=== PATIENT | male | born 1965 | race Caucasian/White ===

== ENCOUNTER 2020-03-15 12:32 | Outpatient (REF) | payer BC, SELFPAY ==
[2020-03-15 14:52] LABS: PSA,Total (Free>4and<10) 0.71 ng/mL (0.00-4.00)
== END 2020-03-15 12:33 | disposition home or self-care (01) ==
LOC: HO.10HDL 12:32
PROVIDERS: Visit Provider Urology
DX: R97.20 Elevated prostate specific antigen [PSA] (principal)
CPT/HCPCS: 84153

== ENCOUNTER → 2020-07-28 13:48 | Outpatient (BNVA) | payer BC, SELFPAY | PROVIDERS: PCP Internal Medicine; Visit Provider Urology | DX: N40.1 Benign prostatic hyperplasia with lower urinary tract symptoms (principal); R97.20 Elevated prostate specific antigen [PSA] | CPT/HCPCS: 51798; 81002 ==

== ENCOUNTER 2021-07-22 10:07 | Outpatient (REF) | payer BC, SELFPAY ==
[2021-07-22 12:24] LABS: Prostate Specific Antigen 0.81 ng/mL (<0.05-4.0)
== END 2021-07-22 10:08 | disposition home or self-care (01) ==
LOC: HO.LAB 10:07
PROVIDERS: PCP Nurse Practitioner Family; Visit Provider Urology
DX: Z12.5 Encounter for screening for malignant neoplasm of prostate (principal); N40.1 Benign prostatic hyperplasia with lower urinary tract symptoms; N13.8 Other obstructive and reflux uropathy
CPT/HCPCS: 36415; 84153

== ENCOUNTER → 2021-07-29 10:01 | Outpatient (BNVA) | payer BC, SELFPAY | PROVIDERS: PCP Nurse Practitioner Family; Visit Provider Urology | DX: Z13.89 Encounter for screening for other disorder (principal) ==

== ENCOUNTER → 2021-09-09 10:28 | Outpatient (BNVA) | payer BC, SELFPAY | PROVIDERS: PCP Nurse Practitioner Family; Visit Provider Urology | DX: N41.9 Inflammatory disease of prostate, unspecified (principal) ==

== ENCOUNTER → 2021-09-16 11:12 | Outpatient (BNVA) | payer BC, SELFPAY | PROVIDERS: PCP Nurse Practitioner Family; Visit Provider Urology | DX: Z13.89 Encounter for screening for other disorder (principal) ==

== ENCOUNTER → 2022-03-17 14:17 | Outpatient (BNVA) | payer BC, SELFPAY | PROVIDERS: PCP Nurse Practitioner Family; Visit Provider Urology | DX: N40.1 Benign prostatic hyperplasia with lower urinary tract symptoms (principal); N41.9 Inflammatory disease of prostate, unspecified; R97.20 Elevated prostate specific antigen [PSA] | CPT/HCPCS: 51798 ==

== ENCOUNTER 2023-03-12 09:35 | Outpatient (REF) | payer OTHER, SELFPAY ==
[2023-03-12 11:15] LABS: Prostate Specific Antigen 1.39 ng/mL (<0.05-4.0)
== END 2023-03-12 09:36 | disposition home or self-care (01) ==
LOC: HO.10HDL 09:35
PROVIDERS: Visit Provider Urology
DX: N40.1 Benign prostatic hyperplasia with lower urinary tract symptoms (principal); Z12.5 Encounter for screening for malignant neoplasm of prostate
CPT/HCPCS: 36415; 84153

== ENCOUNTER 2023-03-13 08:46 | Outpatient (AMB) | payer OTHER, SELFPAY ==
--- NOTE | 2023-03-13 09:28 | MHC.OFFVIS ---
Intake Intake Visit Reasons: 1Y PSA(set) Allergies No Known Allergies Allergy (Verified 03/13/23 08:44) HPI HPI Comments History of Present Illness Details Jack is a pleasant male. He is a patient of Dr. Cardoza. He is seen with following urologic conditions - lower urinary tract symptoms - prostatitis Telemedicine Evaluation 15 min Consultation [employer] Sonam Video Doing well Has feeling that restriction coming back Approximately 8 years since procedure Will plan for office cystoscopy Had uro cuff with friend that showed restricted flow and good pressure Lower urinary tract symptoms Prior therapy laser prostatectomy for BPH - 2014 PSA - 03/19 0.7, 07/19 0.8, 03/22 1.4 Prostatitis Responded to medication Microgen 09/18 negative [facility] Medical History BPH loc w urin obs/LUTS Elevated PSA Review of Systems Const All systems reviewed & are unremarkable except as noted in HPI and below Reports no additional complaints Resp Reports no additional complaints GI Reports no additional complaints Reports as per HPI Musc Reports no additional complaints Physical Exam Telemedicine evaluation Appropriate responses Regular breathing rate and rhythm HEENT Head: Yes normal to inspection Ears: hearing grossly normal bilaterally Eyes General: appearance normal, both eyes and all related structures Neck Neck: Yes normal visual inspection Chest Chest palpation & inspection: normal inspection of the chest Resp Effort & Inspection: normal respiratory effort and able to speak in complete sentences Telehealth Telehealth Location of provider rendering services: practice address Location of patient: address on file Patient Identification confirmed using: Name, : Yes Telehealth method: video Patient verbally consented to treatment: Yes Patient verbally consented to billing insurance company: Yes Patient informed of any privacy concerns related to visit: Yes Coding Level of Care Code Tele Est Pt Level 4 (43986)
== END 2023-03-13 13:10 | disposition home or self-care (01) ==
LOC: HO.HUSH 08:46
PROVIDERS: PCP Nurse Practitioner Family; Visit Provider Urology
DX: N40.1 Benign prostatic hyperplasia with lower urinary tract symptoms (principal); N13.8 Other obstructive and reflux uropathy
CPT/HCPCS: 99214

== ENCOUNTER → 2023-03-13 08:46 | Outpatient (BNVA) | payer OTHER, SELFPAY | PROVIDERS: PCP Nurse Practitioner Family; Visit Provider Urology ==

== ENCOUNTER 2023-07-17 10:48 | Outpatient (AMB) | payer OTHER, SELFPAY ==
--- NOTE | 2023-07-17 11:12 | A.OFFVIS_ITS ---
Intake Intake Visit Reasons: cysto Intake Note: Patient is Present for Cystoscopy Urology Med:Tamsulosin Antibiotic Allergy:None Blood Thinner:None URO- G HD Disposable Cystoscope lot: [id number] exp:02/22/26 Allergies No Known Allergies Allergy (Verified 07/17/23 11:15) HPI HPI Comments History of Present Illness Details Jack is a pleasant male. He is a patient of Dr. Cardoza. He is seen with following urologic conditions - lower urinary tract symptoms - prostatitis Here for cystoscopy Shows restriction at bladder neck Recommends repeat GreenLight laser AUA score 23 Had uro cuff with friend that showed restricted flow and good pressure Lower urinary tract symptoms Prior therapy laser prostatectomy for BPH - 2014 PSA - 03/19 0.7, 07/19 0.8, 03/22 1.4 Prostatitis Responded to medication Microgen 09/18 negative [facility] Medical History BPH loc w urin obs/LUTS Elevated PSA Review of Systems Const Denies chills and Denies fever(s) Card Reports no additional complaints and Denies syncope Resp Denies cough GI Denies abdominal pain and Denies heartburn Reports as per HPI and Denies change in libido Neuro Denies syncope Psych Denies change in libido Endo Denies change in libido Physical Exam Const General: cooperative, healthy appearing, comfortable and no acute distress Orientation/consciousness: patient oriented x3 HEENT Face and sinus: Yes normal facial exam Mouth: moist mucous membranes Neck Neck: Yes normal visual inspection, Yes full ROM and Yes trachea midline Chest Chest palpation & inspection: normal inspection of the chest Resp Effort & Inspection: normal respiratory effort, able to speak in complete sentences and no respiratory distress GI Inspection: Yes normal to inspection Back/Spine/Pelvis Cervical Spine: normal cervical lordosis Thoracic/Lumbar Spine: thoracic and lumbar spine normal to inspection Skin General skin exam: no rashes or lesions noted Neuro General: patient oriented x3, gait normal, tone normal and moves all extremities Extrem General: Yes normal to inspection and Yes capillary refill normal Office Procedures Cystoscopy Consent Discussed risk and benefit or proposed procedure with the patient. Information consent for procedure given to the patient. Discussed technical aspects, risks, benefits and alternatives in full. Addressed all of the patient's questions and concerns regarding the procedure. The patient demonstrated knowledge and understanding. They wish to proceed with this procedure. Preparation The patient was prepped in the usual manner. A head start director was present and in the room. Genitalia was prepped with betadine solution in a sterile manner. Lidocaine Jelly 2% was placed into the urethra and 16Fr flexible Olympus cystoscope was inserted into the meatus after adequate lubrication. Procedure Meatus circumcised Urethra anterior and posterior urethra normal Prostatic Urethra TURP defect with regrowth Bladder examination with retroflexion of cystoscope Bladder Orifices normal shape and position Bladder Capacity large Trabeculations grade 1 Cellule Formation -- Diverticulum Formation - Mucosal Erythema - Bladder Tumor - 90450-Ltecrumaoa DISPOSABLE SCOPE URO-G FLEXIBLE SCOPE Procedure code (CPT) selection complete Office Meds lidocaine HCl 2 % mucosal jelly in applicator Performing Provider: Michael Ball MD Performing Location: [facility] Administered by: Gabbi Ibarra RN on 07/17/23 11:27 Dose Route Admin Location Dispensed Lot Number Expiration Date [facility] [employer] 10 mL intra-urethral 10 mL nitrofurantoin monohydrate/macrocrystals 100 mg capsule Performing Provider: Michael Ball MD Performing Location: [facility] Administered by: Gabbi Ibarra RN on 07/17/23 11:27 Dose Route Admin Location Dispensed Lot Number Expiration Date [place] [employer] 100 mg PO 1 cap naproxen 500 mg tablet Performing Provider: Michael Ball MD Performing Location: [facility] Administered by: Gabbi Ibarra RN on 07/17/23 11:27 Dose Route Admin Location Dispensed Lot Number Expiration Date [place] [employer] 500 mg PO 1 tab Results AMB Urinalysis, Automated UA Leukoctes 0 Tito/uL Last Edit by ETJAL Wallis on 07/17/23 11:23 UA Nitrite Negative Last Edit by TEJAL Wallis on 07/17/23 11:23 UA Urobilinogen 0.2 mg/dL Last Edit by TEJAL Wallis on 07/17/23 11:2 3 UA Protein 0 mg/dL Last Edit by TEJAL Wallis on 07/17/23 11:23 UA pH 6.0 Last Edit by TEJAL Wallis on 07/17/23 11:23 UA Blood 10 Tk/uL Last Edit by Rosauraleonard Oneill, RMA on 07/17/23 11:23 UA Specific [place] 1.010 Last Edit by Rosauraleonard Oneill, RMA on 07/17/23 11: 23 UA Ketone Negative Last Edit by Rosauramarcie Oneill, RMA on 07/17/23 11:23 UA Bilirubin 0 mg/dL Last Edit by Rosaura Oneill, RMA on 07/17/23 11:23 UA Glucose 0 mg/dL Last Edit by Rosaura Oneill, RMA on 07/17/23 11:23 Results Reviewed Results Reviewed: Laboratory Last Values Urine pH (Auto) 6.0 07/17/23 11:16 Specific [place] (Auto) 1.010 07/17/23 11:16 Urine Protein (Auto) 0 mg/dL 07/17/23 11:16 Glucose (UA)(Auto) 0 mg/dL 07/17/23 11:16 Urine Ketones (Auto) Negative 07/17/23 11:16 Urine Blood (Auto) 10 Tk/uL 07/17/23 11:16 Urine Nitrite (Auto) Negative 07/17/23 11:16 Urine Bilirubin (Auto) 0 mg/dL 07/17/23 11:16 Urine Urobilinogen (Auto) 0.2 mg/dL 07/17/23 11:16 Leukocyte Esterase (Auto) 0 Tito/uL 07/17/23 11:16 Assessment & Plan Assessment & Plan (1) BPH loc w urin obs/LUTS: Code(s): N40.1 - Benign prostatic hyperplasia with lower urinary tract symptoms Plan We discussed the nature of the decision and reasonable options for performing a prostate intervention. Interventions include TURP, GreenLight laser enucleation of the prostate, GreenLight laser ablation of the prostate, transurethral incision of the prostate, and I-Tend prostate procedure. Options such as medical therapy were discussed. The relative uncertainties and benefits related to each alternate procedure were adequately discussed. General surgical risks including, but not limited to, pain, bleeding, infection, myocardial infarction, pulmonary embolus, deep vein thrombosis and cerebrovascular accident which may result in further hospitalization were discussed. Full disclosure of the procedure as well as all major risks, benefits and complications were discussed including but not limited to damage to the urethra or bladder neck, recurrent BPH, retrograde ejaculation, bladder infection, urge, de katie frequency, incomplete emptying, dysuria, remote chance of erectile dysfunction, epididymitis, and meatal stenosis. The success rate of the procedure was discussed. Success of the procedure in the short-term does not necessarily guarantee that long-term success will be maintained. Suitable follow up will need to be maintained. The patient showed understanding of discussion. An opportunity was provided for questions to be answered and wishes to proceed with the following procedure. - GreenLight laser incision Orders: Orders AMB Urinalysis Automated 07/17/23 Z13.9 - Encounter for screening, unspecified AMB Cystoscopy 07/17/23 N40.1 - Benign prostatic hyperplasia with lower urinary tract symptoms Patient Instructions: Imaging studies, laboratory and physical exam results were discussed and reviewed in detail. No major barriers to patient understanding were identified. An opportunity to ask questions regarding the treatment plan was provided. All questions were answered. The patient expressed understanding and agreement with the above treatment plan. The patient is aware they should contact our office by phone for worsening of their current condition or the appearance of new urologic symptoms. Compliance is encouraged with any medications and followup testing that is ordered. It is a privilege to participate in the urologic care of your patient. If you have any questions or concerns regarding treatment for the above conditions, or other urologic issues, please do not hesitate to contact me. The office telephone contact is [phone]. This note is constructed using voice recognition software. While every effort has been made to ensure accuracy cosmetic manager errors may have been included. Yours sincerely, Dr Michael Ball MD, [facility] - Urology Providers of Expert, Compassionate Care for the Genitourinary System Coding Level of Care Code Est Pt Level 4 (77873) Diagnoses BPH loc w urin obs/LUTS N40.1 CPT Codes Cystoscopy - CPT: 21630-[id number] ([id number])
== END 2023-07-17 12:01 | disposition home or self-care (01) ==
PROVIDERS: PCP Nurse Practitioner Family; Visit Provider Urology
DX: N40.1 Benign prostatic hyperplasia with lower urinary tract symptoms (principal); N13.8 Other obstructive and reflux uropathy; Z13.9 Encounter for screening, unspecified
CPT/HCPCS: 52000; 99214

== ENCOUNTER → 2023-07-17 10:48 | Outpatient (BNVA) | payer OTHER, SELFPAY | PROVIDERS: PCP Nurse Practitioner Family; Visit Provider Urology | DX: N40.1 Benign prostatic hyperplasia with lower urinary tract symptoms (principal); N13.8 Other obstructive and reflux uropathy | CPT/HCPCS: 52000; 81003 ==

== ENCOUNTER → 2023-07-23 13:50 | Outpatient (BNVA) | payer OTHER, SELFPAY | PROVIDERS: PCP Nurse Practitioner Family; Visit Provider Urology ==

== ENCOUNTER 2023-09-07 14:08 | Outpatient (AMB) | payer OTHER, SELFPAY ==
--- NOTE | 2023-09-07 14:09 | MHC.OFFVIS ---
Intake Visit Reasons: H&P Greenlight Intake Note: Patient is Present for Telephone Follow Up For H&P Urology Med:Tamsulosin Antibiotic Allergy:None Blood Thinner:None Allergies No Known Allergies Allergy (Verified 07/17/23 11:15) HPI Comments Details: Jack is a pleasant male. He is a patient of Dr. Cardoza. He is seen with following urologic conditions - lower urinary tract symptoms - prostatitis Telemedicine Evaluation 15 min Consultation [employer] Video Discussed procedure Questions answered Procedure in a week and a half Cystoscopy - restriction at bladder neck Recommends repeat GreenLight laser AUA score 23 Had uro cuff with friend that showed restricted flow and good pressure Lower urinary tract symptoms Prior therapy laser prostatectomy for BPH - 2014 PSA - 03/19 0.7, 07/19 0.8, 03/22 1.4 Prostatitis Responded to medication Microgen 09/18 negative [facility] Medical History BPH loc w urin obs/LUTS Elevated PSA Review of Systems Const All systems reviewed & are unremarkable except as noted in HPI and below Reports no additional complaints Resp Reports no additional complaints GI Reports no additional complaints Reports as per HPI Musc Reports no additional complaints Physical Exam Telemedicine evaluation Appropriate responses Regular breathing rate and rhythm HEENT Head: Yes normal to inspection Ears: hearing grossly normal bilaterally Eyes General: appearance normal, both eyes and all related structures Neck Neck: Yes normal visual inspection Chest Chest palpation & inspection: normal inspection of the chest Resp Effort & Inspection: normal respiratory effort and able to speak in complete sentences Telehealth Telehealth Telehealth Platform: [employer] Location of provider rendering services: practice address Location of patient: address on file Patient Identification confirmed using: Name, : Yes Telehealth method: video Patient verbally consented to treatment: Yes Patient verbally consented to billing insurance company: Yes Patient informed of any privacy concerns related to visit: Yes Minutes spent on Phone/Video with Pt.: 15 Assessment & Plan Assessment & Plan (1) BPH loc w urin obs/LUTS: Code(s): N40.1 - Benign prostatic hyperplasia with lower urinary tract symptoms Category: Medical Plan Questions answered Patient Instructions: Imaging studies, laboratory and physical exam results were discussed and reviewed in detail. No major barriers to patient understanding were identified. An opportunity to ask questions regarding the treatment plan was provided. All questions were answered. The patient expressed understanding and agreement with the above treatment plan. The patient is aware they should contact our office by phone for worsening of their current condition or the appearance of new urologic symptoms. Compliance is encouraged with any medications and followup testing that is ordered. It is a privilege to participate in the urologic care of your patient. If you have any questions or concerns regarding treatment for the above conditions, or other urologic issues, please do not hesitate to contact me. The office telephone contact is [phone]. This note is constructed using voice recognition software. While every effort has been made to ensure accuracy arbor press operator errors may have been included. Yours sincerely, Dr Michael Ball MD, [facility] [facility] - Urology Providers of Expert, Compassionate Care for the Genitourinary System Coding Level of Care Code Tele Est Pt Level 3 (05753) Diagnoses BPH loc w urin obs/LUTS N40.1
== END 2023-09-07 14:39 | disposition home or self-care (01) ==
LOC: HO.HUSH 14:08
PROVIDERS: PCP Nurse Practitioner Family; Visit Provider Urology
DX: N40.1 Benign prostatic hyperplasia with lower urinary tract symptoms (principal)
CPT/HCPCS: 99213

== ENCOUNTER → 2023-09-07 14:08 | Outpatient (BNVA) | payer OTHER, SELFPAY | PROVIDERS: PCP Nurse Practitioner Family; Visit Provider Urology ==

== ENCOUNTER 2023-09-17 09:08 | Day surgery (SDC) | payer OTHER, SELFPAY ==
--- NOTE | 2023-09-13 14:12 | HO.ANESPROP2 ---
Documented by User: Brenda Lynn NP 09/13/23 14:12 HPI - Anesthesia Eval Consult details Narrative: 57yo M for Laser Ablation Prostate w/Green Light PMFSH Active Problems Active Problems: All Active Problems Prostatitis (Acute) Elevated PSA (Acute) BPH loc w urin obs/LUTS (Acute) Past Medical History Medical History Elevated PSA BPH loc w urin obs/LUTS Surgical History Surgical History History of colonoscopy with polypectomy Social History Social History Patient Tobacco Use Status: Former Tobacco user Quit Date: 25 years Are you DNR?: No Advance Directives: No Advance Directives Information Provided: Yes Meds Allergies Allergy/AdvReac Type Severity Reaction Status Date / Time No Known Allergies Allergy Verified 07/17/23 11:15 Home Medications ?Medication ?Instructions ?Recorded ?Confirmed ?Last Taken ?Type atorvastatin 20 mg tablet 20 mg PO DAILY 07/28/20 09/17/23 Unknown History Assessment and Plan Assessment Anesthesia Assessment: Chart Reviewed Documented by User: Keri Elena MD 09/17/23 09:45 PMFSH Past Medical History Medical History Elevated PSA BPH loc w urin obs/LUTS Family History Family history of problems with anesthesia: No Surgical History Surgical History History of colonoscopy with polypectomy History of Problems with Anesthesia: No Social History Social History Patient Tobacco Use Status: Former Tobacco user Quit Date: 25 years Are you DNR?: No Advance Directives: No Advance Directives Information Provided: Yes Meds Allergies Allergy/AdvReac Type Severity Reaction Status Date / Time No Known Allergies Allergy Verified 07/17/23 11:15 Home Medications ?Medication ?Instructions ?Recorded ?Confirmed ?Last Taken ?Type atorvastatin 20 mg tablet 20 mg PO DAILY 07/28/20 09/17/23 Unknown History Exam Airway Mallampati Class: III (small mouth opening, cap top left laterally) TM Dist: >3cm Neck ROM: Full Heart: rrr Lungs: cta Assessment and Plan Assessment Anesthesia Assessment: Anesthesia Plan Discussed Final Anesthetic Review Family History of Problems with Anesthesia: No History of Problems with Anesthesia: No NPO: Yes ASA Class: II Final Preanesthetic Review: No Changes in Pt Med Stat, Meds/Allgs Chart Reviewed and Consent Obtained/Reviewed Patient Risk: Low Procedure Risk: Low Anesthetic Plan Anesthetic Plan: GA Disposition: Standard PACU
[2023-09-17] VITALS (7 sets, daily range): BP systolic 114–128; BP diastolic 70–85; PULSE 63–84; RESP 14–18; TEMP 36.7–36.8; O2SAT 90–98; BMI 27.6
--- NOTE | 2023-09-17 09:38 | HO.ANESPROP2 ---
[facility] Active Problems Active Problems: All Active Problems Prostatitis (Acute) Elevated PSA (Acute) BPH loc w urin obs/LUTS (Acute) Past Medical History Medical History Elevated PSA BPH loc w urin obs/LUTS Functional capacity: independent ambulation Family History Family history of problems with anesthesia: No Surgical History Surgical History History of colonoscopy with polypectomy History of Problems with Anesthesia: No Social History Social History Patient Tobacco Use Status: Former Tobacco user Quit Date: 25 years Are you DNR?: No Advance Directives: No Advance Directives Information Provided: Yes Meds Allergies Allergy/AdvReac Type Severity Reaction Status Date / Time No Known Allergies Allergy Verified 07/17/23 11:15 Active Medications: Current Medications Lactated Ringer's (Lr) 1,000 mls @ 100 mls/hr IVCONT .Q10H TERE Levofloxacin (Levaquin) 500 mg in 100 mls @ 100 mls/hr IV PREOP ONE Stop: 09/17/23 10:16 Home Medications ?Medication ?Instructions ?Recorded ?Confirmed ?Last Taken ?Type atorvastatin 20 mg tablet 20 mg PO DAILY 07/28/20 09/17/23 Unknown History Exam Height,Weight and Vital Signs: Height 6 ft 2 in Weight 97.522 kg Last Vital Signs Temp 98.1 F 09/17/23 09:23 Pulse 84 09/17/23 09:23 Resp 18 09/17/23 09:23 BP 128/85 09/17/23 09:23 Pulse Ox 96 09/17/23 09:23 O2 Del Method Room Air 09/17/23 09:23 Airway Mallampati Class: III TM Dist: >3cm Neck ROM: Full Heart: RRR Lungs: CTA Assessment and Plan Assessment Anesthesia Assessment: Anesthesia Plan Discussed Final Anesthetic Review Family History of Problems with Anesthesia: No History of Problems with Anesthesia: No ASA Class: III Final Preanesthetic Review: Meds/Allgs Chart Reviewed, Consent Obtained/Reviewed and Anes Risks/Benef Reviewed Patient Risk: Intermediate Procedure Risk: Intermediate Anesthetic Plan Anesthetic Plan: GA Disposition: Standard PACU
[2023-09-17] MEDS: Lactated Ringers 1,000 ML 100 ML IVCONT (09:41)
--- NOTE | 2023-09-17 10:26 | P.HPSUR_ITS ---
Pre-Procedural Eval Section A - 24 Hr Update-Section A only Date of Service: 09/17/23 The patient is an INPATIENT: No Changes since office visit: No Cold of Flu in the past 2 weeks, No New Medical Problems, No Changes in Medication and No Patient answered all questions The patient has been examined within 24 hours of the surgical procedure. The History & Physical has been completed within 30 days and I have reviewed it.: No Section B - Complete if H&P > 30 days Chief Complaint: Benign prostatic hyperplasia with lower urinary tr Relevant Family History (Specify if Yes): No Relevant Social History: None Present Medications: see Short Stay Collaborative assessment Medical History: No relevant PMH History of Previous Operations: No relevant previous surgery Allergies: Allergies Allergy/AdvReac Type Severity Reaction Status Date / Time No Known Allergies Allergy Verified 07/17/23 11:15 Review of Systems Sugical H&P ROS: Negative: Constitution, Cardiovascular, Respiratory, Neuro logical, Psychiatric, Hem-Onc, Allergic/Immunologic, Gastrointestinal, Genitourinary, Musculoskeletal, Integumentary, Endocrine and Eyes/Ears/Nose/Throat Exam Surgical H&P Exam: Normal: HEENT, Normal: Heart, Normal: Lungs, Normal: Extremities, Normal: Abdomen, Normal: Skin and Normal: Neurological Plan Diagnosis/Plan: Unchanged (GreenLight laser enucleation) I have reviewed the history and physical and performed a pertinent physical examination on my patient. No changes have occurred unless specified. Time Spent With Patient Time: Total time managing care of this patient today ____ minutes.
--- NOTE | 2023-09-17 10:26 | P.HPSUR_ITS ---
Pre-Procedural Eval Section A - 24 Hr Update-Section A only Date of Service: 09/17/23 The patient is an INPATIENT: No Changes since office visit: No Cold of Flu in the past 2 weeks, No New Medical Problems, No Changes in Medication and No Patient answered all questions The patient has been examined within 24 hours of the surgical procedure. The History & Physical has been completed within 30 days and I have reviewed it.: Yes Section B - Complete if H&P > 30 days Chief Complaint: Benign prostatic hyperplasia with lower urinary tr Allergies: Allergies Allergy/AdvReac Type Severity Reaction Status Date / Time No Known Allergies Allergy Verified 07/17/23 11:15 Review of Systems Sugical H&P ROS: Negative: Constitution, Cardiovascular, Respiratory, Neurological, Psychiatric, Hem-Onc, Allergic/Immunologic, Gastrointestinal, Genitourinary, Musculoskeletal, Integumentary, Endocrine and Eyes/Ears/Nose/Th roat Exam Surgical H&P Exam: Normal: HEENT, Normal: Heart, Normal: Lungs, Normal: Extremities, Normal: Abdomen, Normal: Skin and Normal: Neurological Plan Diagnosis/Plan: Unchanged (Laser enucleation of the prostate) I have reviewed the history and physical and performed a pertinent physical examination on my patient. No changes have occurred unless specified. Time Spent With Patient Time: Total time managing care of this patient today ____ minutes.
--- NOTE | 2023-09-17 11:16 | P.OP_ITS ---
Operative Note Operative Note Date of Service: 09/17/23 Narrative: PreOperative Diagnosis: Bladder outlet obstruction Post Operative Diagnosis: Bladder outlet obstruction Procedure: GreenLight Laser Enucleation of the prostate CPT 63725 Surgeon: Dr Michael Ball Anesthesia: General History of bladder outlet obstruction. Treated with alpha-skye and other medications. Still with symptoms. On cystoscopy in office has [trilobar prostate] [tight bladder neck]. Recommendation for prostate procedure with laser enucleation of prostate. Risks and benefits have been discussed. Focus was placed on development of retrograde ejaculation which is a normal part of this procedure. Procedure: After informed consent was verified the patient was brought to the operating room and placed in a supine position. Anesthesia was administered per protocol. Patient was placed in modified dorsal lithotomy position and prepped and draped in a sterile fashion. Safety pause time-out was confirmed. Antibiotics have been given. A Twenty-four [place] laser cystoscope was inserted per urethra. No abnormalities were found of the anterior and bulbar urethra. The prostatic urethra shows tight bladder neck. The bladder was examined and both ureteric orifices were seen in their normal positions away from the area of interest. Bladder trabeculation Grade 1/2. Using a GreenLight laser with settings of 80 [place] incisions were made at the 5 and 7 o'clock position. The incisions were taken down from the bladder neck down to the level of the veru. These were gradually deepened in order to define the lateral aspects of the median lobe area. Once clearly defined they will also extended in the lateral directions in order to create a deep groove. The median lobe was then ablated and enucleated tissue released into the bladder with the laser power increased to 120 W. Since there were minimal lateral lobes a decision was made not to remove any tissue. Both ureteric orifices were reviewed again in shown to be patent in away from any areas of energy damage. The apical area was reviewed in any stray ooze was controlled. A 22 [place]ican 30 cc balloon Smith catheter was placed over a stylet into the bladder. Clear efflux was obtained upon irrigation with a [place] piston syringe. 30 cc was placed in the balloon and gentle traction was placed. A snap was used to hold tension on the catheter to control bleeding during patient moved and transported. A drainage bag was placed. Once transportation is complete to the PACU the snap will be removed. The patient tolerated the procedure well, he was extubated in the operating and transferred in a stable condition to the recovery area. Total Power 35 kW Lasing time 6:05 Pathology: Prostate tissue Drains: Smith catheter
[2023-09-17] MEDS: Acetaminophen 1,000 MG/100 ML PIGGYBACK 400 MG IV (11:29)
--- NOTE | 2023-09-17 14:58 | HO.POSTANES ---
Post Anesthesia Evaluation Post Anesthesia Evaluation Date of Service: 09/17/23 Vital Signs: Vital Signs Temp Pulse Resp BP Pulse Ox O2 Del Method O2 Flow Rate 09/17/23 12:09 98.2 F 63 18 114/70 97 Room Air 09/17/23 11:54 65 18 115/79 96 Room Air 09/17/23 11:39 65 17 115/79 98 Nasal Cannula 2 09/17/23 11:34 69 18 115/75 97 Nasal Cannula 2 09/17/23 11:29 70 18 114/72 98 Nasal Cannula 2 09/17/23 11:24 98.2 F 71 14 119/77 90 L Room Air 09/17/23 09:23 98.1 F 84 18 128/85 96 Room Air Anesthesia: General LMA Mental Status: Awake Pain Control: Satisfactory Nausea/Vomiting: None Hydration: Adequate Anesthesia-Related Issues: No Anes. Related Issues
== END 2023-09-17 12:50 | disposition home or self-care (01) ==
PROVIDERS: PCP Nurse Practitioner Family; Visit Provider Urology
PROC: (CPT 52648; principal; 2023-09-17 10:30)
DX: N40.1 Benign prostatic hyperplasia with lower urinary tract symptoms (principal); N32.0 Bladder-neck obstruction; N41.9 Inflammatory disease of prostate, unspecified; Z79.899 Other long term (current) drug therapy; Z87.891 Personal history of nicotine dependence
CPT/HCPCS: 52649; 88305; J0131; J1100; J1956; J2250; J2405; J2704; J3010

== ENCOUNTER → 2023-09-17 09:08 | Outpatient (BNV) | payer OTHER, SELFPAY | PROVIDERS: PCP Nurse Practitioner Family; Visit Provider Urology | DX: N32.0 Bladder-neck obstruction (principal) | CPT/HCPCS: 52649 ==

== ENCOUNTER → 2023-09-20 10:28 | Outpatient (BNVA) | payer OTHER, SELFPAY | PROVIDERS: PCP Nurse Practitioner Family; Visit Provider Urology | DX: N41.9 Inflammatory disease of prostate, unspecified (principal); N40.1 Benign prostatic hyperplasia with lower urinary tract symptoms; R97.20 Elevated prostate specific antigen [PSA] | CPT/HCPCS: 51700; 51798 ==

== ENCOUNTER 2023-11-14 13:29 | Outpatient (AMB) | payer OTHER, SELFPAY ==
--- NOTE | 2023-11-14 13:46 | MHC.OFFVIS ---
Intake Visit Reasons: PVR-Greenlight(09/16) Intake Note: Patient Is Present for Post Op Follow up Procedure Done: Greenlight Urology Med: Tamsulosin Antibiotic Allergy:None Blood Thinner:None PVR:50 [place] Miner Required: No Accompanied by: Self / Same As Patient Allergies No Known Allergies Allergy (Verified 11/14/23 13:46) HPI Comments Details: Jack is a pleasant male. He is a patient of Dr. Cardoza. He is seen with following urologic conditions - lower urinary tract symptoms - prostatitis Low PVR Thinks stream his own improved marginally Nocturia x1 Come off alpha-skye Six-month follow-up PVR with PSA Had uro cuff with friend that showed restricted flow and good pressure Lower urinary tract symptoms Prior therapy laser prostatectomy for BPH - 2014 PSA - 03/19 0.7, 07/19 0.8, 03/22 1.4 Repeat GreenLight 09/20 Prostatitis Responded to medication Microgen 09/18 negative PFSH Medical History Elevated PSA BPH loc w urin obs/LUTS Surgical History History of colonoscopy with polypectomy Social History Patient Tobacco Use Status: Former Tobacco user Review of Systems Const Denies chills and Denies fever(s) Card Reports no additional complaints and Denies syncope Resp Denies cough GI Denies abdominal pain and Denies heartburn Reports as per HPI and Denies change in libido Neuro Denies syncope Psych Denies change in libido Endo Denies change in libido Physical Exam Const General: cooperative, healthy appearing, comfortable and no acute distress Orientation/consciousness: patient oriented x3 HEENT Face and sinus: Yes normal facial exam Mouth: moist mucous membranes Neck Neck: Yes normal visual inspection, Yes full ROM and Yes trachea midline Chest Chest palpation & inspection: normal inspection of the chest Resp Effort & Inspection: normal respiratory effort, able to speak in complete sentences and no respiratory distress GI Inspection: Yes normal to inspection Back/Spine/Pelvis Cervical Spine: normal cervical lordosis Thoracic/Lumbar Spine: thoracic and lumbar spine normal to inspection Skin General skin exam: no rashes or lesions noted Neuro General: patient oriented x3, gait normal, tone normal and moves all extremities Extrem General: Yes normal to inspection and Yes capillary refill normal Office Procedures Post Void Residual Post Residual Void Post Void Residual (PVR): 50 08006-Oixi Void Residual by ultrasound Assessment & Plan Assessment & Plan (1) BPH loc w urin obs/LUTS: Code(s): N40.1 - Benign prostatic hyperplasia with lower urinary tract symptoms Category: Medical (2) Elevated PSA: Code(s): R97.20 - Elevated prostate specific antigen [PSA] Category: Medical Plan Six-month follow-up Orders: Orders AMB Post Void Residual by ultrasound Today N40.1 - Benign prostatic hyperplasia with lower urinary tract symptoms Prostate Specific Antigen 6 Months N40.1 - Benign prostatic hyperplasia with lower urinary tract symptoms Patient Instructions: Imaging studies, laboratory and physical exam results were discussed and reviewed in detail. No major barriers to patient understanding were identified. An opportunity to ask questions regarding the treatment plan was provided. All questions were answered. The patient expressed understanding and agreement with the above treatment plan. The patient is aware they should contact our office by phone for worsening of their current condition or the appearance of new urologic symptoms. Compliance is encouraged with any medications and followup testing that is ordered. It is a privilege to participate in the urologic care of your patient. If you have any questions or concerns regarding treatment for the above conditions, or other urologic issues, please do not hesitate to contact me. The office telephone contact is [phone]. This note is constructed using voice recognition software. While every effort has been made to ensure accuracy parquet floor layer's helper errors may have been included. Yours sincerely, Dr Michael Ball MD, [facility] - Urology Providers of Expert, Compassionate Care for the Genitourinary System Coding Level of Care Code Est Pt Level 3 (31201) Diagnoses BPH loc w urin obs/LUTS N40.1 Elevated PSA R97.20 CPT Codes Post Residual Void - PVR CPT Code: 74097-Ltwr Void Residual by ultrasound ([id number])
== END 2023-11-14 14:13 | disposition home or self-care (01) ==
PROVIDERS: PCP Nurse Practitioner Family; Visit Provider Urology
DX: N40.1 Benign prostatic hyperplasia with lower urinary tract symptoms (principal); R97.20 Elevated prostate specific antigen [PSA]
CPT/HCPCS: 99024

== ENCOUNTER → 2023-11-14 13:29 | Outpatient (BNVA) | payer OTHER, SELFPAY | PROVIDERS: PCP Nurse Practitioner Family; Visit Provider Urology | DX: R97.20 Elevated prostate specific antigen [PSA] (principal); N40.1 Benign prostatic hyperplasia with lower urinary tract symptoms; N13.8 Other obstructive and reflux uropathy | CPT/HCPCS: 51798 ==

== ENCOUNTER 2024-05-15 09:36 | Outpatient (REF) | payer OTHER, SELFPAY ==
[2024-05-15 11:12] LABS: Prostate Specific Antigen 0.93 ng/mL (<0.05-4.0)
== END 2024-05-15 09:37 | disposition home or self-care (01) ==
LOC: HO.10HDL 09:36
PROVIDERS: Visit Provider Urology
DX: Z12.5 Encounter for screening for malignant neoplasm of prostate (principal); N40.1 Benign prostatic hyperplasia with lower urinary tract symptoms
CPT/HCPCS: 36415; 84153

== ENCOUNTER 2024-05-16 08:20 | Outpatient (AMB) | payer OTHER, SELFPAY ==
--- NOTE | 2024-05-16 08:30 | MHC.OFFVIS ---
Intake Visit Reasons: 6m/PSA(set) Intake Note: Patient is present for 6M/PSA Urology Medication:NONE Antibiotic Allergy:NONE Blood Thinner:NONE TODAY'S PVR:0ML'S Plumbing Warehouse Helper Required: No Allergies No Known Allergies Allergy (Verified 05/16/24 08:30) HPI Comments Details: Jack is a pleasant male. He is a patient of Dr. Cardoza. He is seen with following urologic conditions - lower urinary tract symptoms - prostatitis Current PVR Nocturia x1 Previously on alpha blockers Did discuss mild erectile dysfunction Suggested penile constriction ring Information provided Had uro cuff with friend that showed restricted flow and good pressure Lower urinary tract symptoms Prior therapy laser prostatectomy for BPH - 2014 PSA - 03/19 0.7, 07/19 0.8, 03/22 1.4, 05/24 0.9 Repeat GreenLight 09/20 Prostatitis Responded to medication Microgen 09/18 negative PFSH Medical History Elevated PSA BPH loc w urin obs/LUTS Surgical History History of colonoscopy with polypectomy Social History Patient Tobacco Use Status: Former Tobacco user Review of Systems Const Denies chills and Denies fever(s) Card Reports no additional complaints and Denies syncope Resp Denies cough GI Denies abdominal pain and Denies heartburn Reports as per HPI and Denies change in libido Neuro Denies syncope Psych Denies change in libido Endo Denies change in libido Physical Exam Const General: cooperative, healthy appearing, comfortable and no acute distress Orientation/consciousness: patient oriented x3 HEENT Face and sinus: Yes normal facial exam Mouth: moist mucous membranes Neck Neck: Yes normal visual inspection, Yes full ROM and Yes trachea midline Chest Chest palpation & inspection: normal inspection of the chest Resp Effort & Inspection: normal respiratory effort, able to speak in complete sentences and no respiratory distress GI Inspection: Yes normal to inspection Back/Spine/Pelvis Cervical Spine: normal cervical lordosis Thoracic/Lumbar Spine: thoracic and lumbar spine normal to inspection Skin General skin exam: no rashes or lesions noted Neuro General: patient oriented x3, gait normal, tone normal and moves all extremities Extrem General: Yes normal to inspection and Yes capillary refill normal Office Procedures Post Void Residual Post Residual Void Post Void Residual (PVR): 0 77980-Rkzz Void Residual by ultrasound Results AMB Urinalysis, Automated UA Leukoctes 0 Tito/uL Last Edit by WENDY Vasques on 05/16/24 08:41 UA Nitrite Negative Last Edit by WENDY Vasques on 05/16/24 08:41 UA Urobilinogen 0.2 mg/dL Last Edit by WENDY Vasques on 05/16/24 08:41 UA Protein 0 mg/dL Last Edit by Lemuel Sorto CCM on 05/16/24 08:41 UA pH 6.0 Last Edit by Lemuel Sorto [facility] on 05/16/24 08:41 UA Blood 10 Tk/uL Last Edit by Lemuel Sorto CCM on 05/16/24 08:41 UA Specific Cyril 1.010 Last Edit by WENDY Vasques on 05/16/24 08:41 UA Ketone Negative Last Edit by Lemuel Sorto [facility] on 05/16/24 08:41 UA Bilirubin 0 mg/dL Last Edit by WENDY Vasques on 05/16/24 08:41 UA Glucose 0 mg/dL Last Edit [facility] on 05/16/24 08:41 Results Reviewed Results Reviewed: Laboratory Last Values Urine pH (Auto) 6.0 05/16/24 08:39 Specific Cyril (Auto) 1.010 05/16/24 08:39 Urine Protein (Auto) 0 mg/dL 05/16/24 08:39 Glucose (UA)(Auto) 0 mg/dL 05/16/24 08:39 Urine Ketones (Auto) Negative 05/16/24 08:39 Urine Blood (Auto) 10 Tk/uL 05/16/24 08:39 Urine Nitrite (Auto) Negative 05/16/24 08:39 Urine Bilirubin (Auto) 0 mg/dL 05/16/24 08:39 Urine Urobilinogen (Auto) 0.2 mg/dL 05/16/24 08:39 Leukocyte Esterase (Auto) 0 Tito/uL 05/16/24 08:39 Assessment & Plan Assessment & Plan (1) BPH loc w urin obs/LUTS: Code(s): N40.1 - Benign prostatic hyperplasia with lower urinary tract symptoms Category: Medical Plan Six-month follow-up tele Orders: Orders AMB Urinalysis Automated Today Z13.9 - Encounter for screening, unspecified Patient Instructions: Imaging studies, laboratory and physical exam results were discussed and reviewed in detail. No major barriers to patient understanding were identified. An opportunity to ask questions regarding the treatment plan was provided. All questions were answered. The patient expressed understanding and agreement with the above treatment plan. The patient is aware they should contact our office by phone for worsening of their current condition or the appearance of new urologic symptoms. Compliance is encouraged with any medications and followup testing that is ordered. It is a privilege to participate in the urologic care of your patient. If you have any questions or concerns regarding treatment for the above conditions, or other urologic issues, please do not hesitate to contact me. The office telephone contact is [phone]. This note is constructed using voice recognition software. While every effort has been made to ensure accuracy occ therapist errors may have been included. Yours sincerely, Dr Michael Ball MD, [facility] - Urology Providers of Expert, Compassionate Care for the Genitourinary System Coding Level of Care Code Est Pt Level 3 (98373) Diagnoses BPH loc w urin obs/LUTS N40.1 CPT Codes Post Residual Void - PVR CPT Code: 35910-Zjhd Void Residual by ultrasound ([id number])
== END 2024-05-16 08:56 | disposition home or self-care (01) ==
PROVIDERS: PCP Nurse Practitioner Family; Visit Provider Urology
DX: Z13.9 Encounter for screening, unspecified (principal); N40.1 Benign prostatic hyperplasia with lower urinary tract symptoms
CPT/HCPCS: 99213

== ENCOUNTER → 2024-05-16 08:20 | Outpatient (BNVA) | payer OTHER, SELFPAY | PROVIDERS: PCP Nurse Practitioner Family; Visit Provider Urology | DX: N40.1 Benign prostatic hyperplasia with lower urinary tract symptoms (principal); N13.8 Other obstructive and reflux uropathy | CPT/HCPCS: 51798; 81003 ==

== ENCOUNTER 2024-10-16 09:14 | Outpatient (AMB) | payer OTHER, SELFPAY ==
--- NOTE | 2024-10-16 09:14 | A.OFFVIS_ITS ---
Intake Visit Reasons: 6m followup Intake Note: Patient is present for 6M F/U Urology Medication:NONE Antibiotic Allergy:NONE Blood Thinner:NONE Business Continuity Global Director Required: No Allergies No Known Allergies Allergy (Verified 10/16/24 09:15) HPI Comments Details: Jack is a pleasant male. He is a patient of Dr. Cardoza. He is seen with following urologic conditions - lower urinary tract symptoms - prostatitis - mild erectile dysfunction Telemedicine Evaluation 15 min Consultation [email or web address] Sonam Video 6m f/u Mild erectile dysfunction Prior suggested penile constriction ring Had uro cuff with friend that showed restricted flow and good pressure Trial of tadalafil for bladder stability and ED Lower urinary tract symptoms Prior therapy laser prostatectomy for BPH - 2014 PSA - 03/19 0.7, 07/19 0.8, 03/22 1.4, 05/24 0.9 Repeat GreenLight 09/20 Prostatitis Responded to medication Microgen 09/18 negative PFS Medical History Elevated PSA BPH loc w urin obs/LUTS Surgical History History of colonoscopy with polypectomy Social History Patient Tobacco Use Status: Former Tobacco user Review of Systems Const All systems reviewed & are unremarkable except as noted in HPI and below Reports no additional complaints Resp Reports no additional complaints GI Reports no additional complaints Reports as per HPI Musc Reports no additional complaints Physical Exam Telemedicine evaluation Appropriate responses Regular breathing rate and rhythm HEENT Head: Yes normal to inspection Ears: hearing grossly normal bilaterally Eyes General: appearance normal, both eyes and all related structures Neck Neck: Yes normal visual inspection Chest Chest palpation & inspection: normal inspection of the chest Resp Effort & Inspection: normal respiratory effort and able to speak in complete sentences Telehealth Telehealth Location of provider rendering services: practice address Location of patient: address on file Patient Identification confirmed using: Name, : Yes Telehealth method: voice only Patient verbally consented to treatment: Yes Patient verbally consented to billing insurance company: Yes Patient informed of any privacy concerns related to visit: Yes Assessment & Plan Assessment & Plan (1) BPH loc w urin obs/LUTS: Code(s): N40.1 - Benign prostatic hyperplasia with lower urinary tract symptoms Category: Medical (2) Elevated PSA: Code(s): R97.20 - Elevated prostate specific antigen [PSA] Category: Medical Plan Three-month follow-up tele Medications: New tadalafil [id number] [facility] [id number] Member [id number] 5 mg PO DAILY 90 tabs 0RF bladder stability 90 days N40.1 - Benign prostatic hyperplasia with lower urinary tract symptoms Patient Instructions: This note is constructed using voice recognition software. While every effort has been made to ensure accuracy drop forge operator errors may have been included. Imaging studies, laboratory and physical exam results were discussed and reviewed in detail. No major barriers to patient understanding were identified. An opportunity to ask questions regarding the treatment plan was provided. All questions were answered. The patient expressed understanding and agreement with the above treatment plan. The patient is aware they should contact our office by phone for worsening of th eir current condition or the appearance of new urologic symptoms. Compliance is encouraged with any medications and followup testing that is ordered. It is a privilege to participate in the urologic care of your patient. If you have any questions or concerns regarding treatment for the above conditions, or other urologic issues, please do not hesitate to contact me. The office telephone contact is [phone]. Sincerely, Dr Michael Ball MD, [facility] - Urology Compassionate Specialist Care for the Genitourinary System Coding Level of Care Code Tele Est Pt Level 3 (69198) Complex EM visit Add On G2211 Diagnoses BPH loc w urin obs/LUTS N40.1 Elevated PSA R97.20
--- OUTSIDE RECORDS SUMMARY | 2024-10-16 09:50 | XMS_ITS | Continuity of Care Document ---
Author Organization [facility] Address [address] [place] [address] Phone [phone] Care Team Providers Care Sql Report Writer Name Role Phone Charla Cardoza CNP Care Team Informati on Event Staff Member [phone] Problems Active Problems Provider Date Multinodular goiter Elissa Gonzalez M.D. Onset: 02/22/2022 Dyslipidemia Elissa Gonzalez M.D. Ons et: 02/22/2022 Gastroesophageal reflux disease Elissa Palmer M.D. Onset: 02/22/2022 Degeneration of cervical intervertebral disc Elissa Gonzalez M.D. Onset: 02/22/2022 Degeneration of lumbar inter vertebral disc Elissa Gonzalez M.D. Onset: 02/22/2022 Ventricular premature complex Elissa calderon M.D. Onset: 02/22/2022 Basal cell carcinoma of face Elissa jewell M.D. Onset: 02/22/2022 Prostatitis Elissa Gonzalez M.D. Ons et: 02/22/2022 Social History Type Date Description Comments Sex Male Sex Unknown Lives With Spouse Occupation facilities maintenance manager Work Status Full-Time Employment Tobacco Use Start: Unknown End: Quit ETOH Use Occasionally consumes alcoho l Allergies and adverse reactions Description No Known Drug Allergies Medications Active Medications SIG Qnty Indications Ordering Provider Date Atorvastatin [id number] Tablets 1 qd Rodo Cardoza CNP Lyfgm210tm Tablets 3 tabs bid prn Ki raymond Gonzalez M.D. Vital Signs Date Vital Result Comment 04/11/2024 8:04am BP Systolic 108 mmHg BP Diastolic 60 mmHg Heart Rate 88 /min Height 74 inches 6'2 Weight 218.25 lb BMI (Body Mass Index) 28.0 kg/m2 Results Test Acquired Date Facility Test Result H/L Range N ote TSH With Reflex To FT4 09/01/2022 [facility] TSH With Reflex To FT4 1.87 uIU/mL (0.4-4.2) Medical Devices Description No Information Available Encounters Type Date Location Provider Dx Diagnosis Office Visit 04/11/2024 8:00a Main Office Elissa Gonzalez M.D. E04.2 Nontoxic multinodular goiter Assessments Date Code Description Provider 04/11/2024 E04.2 Nontoxic multinodular goiter Elissa Gonzalez M.D. Plan of Treatment Future Appointment(s):* 10/17/2024 8:15 am - Elissa Gonzalez M.D. at Main Office 10/10/2023 - Elissa Gonzalez M.D.* E04.2 Nontoxic multinodular goiter Functional Status Description No Information Available Mental Status Description No Information Available Referrals Refer to Dr Reason for Referral Status Appt Severo Elissa Ramos M.D. Closed [address] [place] [address] [address] [place] [address] [phone]
== END 2024-10-16 09:45 | disposition home or self-care (01) ==
LOC: HO.HUSH 09:14
PROVIDERS: PCP Nurse Practitioner Family; Visit Provider Urology
DX: N40.1 Benign prostatic hyperplasia with lower urinary tract symptoms (principal); R97.20 Elevated prostate specific antigen [PSA]
CPT/HCPCS: 98013

== ENCOUNTER → 2024-10-16 09:14 | Outpatient (BNVA) | payer OTHER, SELFPAY | PROVIDERS: PCP Nurse Practitioner Family; Visit Provider Urology ==

== ENCOUNTER 2025-02-03 11:37 | Outpatient (AMB) | payer OTHER, SELFPAY ==
--- NOTE | 2025-02-03 11:37 | MHC.OFFVIS ---
Intake Visit Reasons: 3M follow up Intake Note: Patient is present for 3M F/U Telehealth Urology Medication:Tadalafil Antibiotic Allergy:NONE Blood Thinner:NONE Workers' Compensation Claims Examiner Required: No Accompanied by: Self / Same As Patient Allergies No Known Allergies Allergy (Verified 02/03/25 11:37) HPI Comments Details: Jack is a pleasant male. He is a patient of Dr. Cardoza. He is seen with following urologic conditions - lower urinary tract symptoms - prostatitis - mild erectile dysfunction Telemedicine Evaluation 15 min Consultation [employer] Sonam Video 6m f/u Significant benefit from use of tadalafil daily Helpful for bladder stability and erectile dysfunction Had uro cuff with friend that showed restricted flow and good pressure Lower urinary tract symptoms Prior therapy laser prostatectomy for BPH - 2014 PSA - 03/19 0.7, 07/19 0.8, 03/22 1.4, 05/24 0.9 Repeat GreenLight 09/20 Prostatitis Responded to medication Microgen 09/18 negative PFSH Medical History Elevated PSA BPH loc w urin obs/LUTS Surgical History History of colonoscopy with polypectomy Social History Patient Tobacco Use Status: Former Tobacco user Review of Systems Const All systems reviewed & are unremarkable except as noted in HPI and below Reports no additional complaints Resp Reports no additional complaints GI Reports no additional complaints Reports as per HPI Musc Reports no additional complaints Physical Exam Telemedicine evaluation Appropriate responses Regular breathing rate and rhythm HEENT Head: Yes normal to inspection Ears: hearing grossly normal bilaterally Eyes General: appearance normal, both eyes and all related structures Neck Neck: Yes normal visual inspection Chest Chest palpation & inspection: normal inspection of the chest Resp Effort & Inspection: normal respiratory effort and able to speak in complete sentences Telehealth Telehealth Telehealth Platform: Profitek Location of provider rendering services: practice address Location of patient: address on file Patient Identification confirmed using: Name, : Yes Telehealth method: video Patient verbally consented to treatment: Yes Patient verbally consented to billing insurance company: Yes Patient informed of any privacy concerns related to visit: Yes Minutes spent on Phone/Video with Pt.: 15 Assessment & Plan Assessment & Plan (1) Elevated PSA: Code(s): R97.20 - Elevated prostate specific antigen [PSA] Category: Medical (2) BPH loc w urin obs/LUTS: Code(s): N40.1 - Benign prostatic hyperplasia with lower urinary tract symptoms Category: Medical Plan Six-month follow-up Refill prescription Medications: Refilled tadalafil [id number] [facility] [id number] Member [id number] 5 mg PO DAILY 90 tabs 1RF bladder stability 90 days N40.1 - Benign prostatic hyperplasia with lower urinary tract symptoms Patient Instructions: This note is constructed using voice recognition software. While every effort has been made to ensure accuracy carbon sequestration plant operator errors may have been included. Imaging studies, laboratory and physical exam results were discussed and reviewed in detail. No major barriers to patient understanding were identified. An opportunity to ask questions regarding the treatment plan was provided. All questions were answered. The patient expressed understanding and agreement with the above treatment plan. The patient is aware they should contact our office by phone for worsening of their current condition or the appearance of new urologic symptoms. Compliance is encouraged with any medications and followup testing that is ordered. It is a privilege to participate in the urologic care of your patient. If you have any questions or concerns regarding treatment for the above conditions, or other urologic issues, please do not hesitate to contact me. The office telephone contact is [phone]. Sincerely, Dr Michael Ball MD, [facility] - Urology Compassionate Specialist Care for the Genitourinary System Coding Level of Care Code Tele Est Pt Level 3 (97180) Complex EM visit Add On G2211 Diagnoses Elevated PSA R97.20 BPH loc w urin obs/LUTS N40.1
--- OUTSIDE RECORDS SUMMARY | 2025-02-03 14:41 | XMS_ITS | Continuity of Care Document ---
Author Organization [facility] [address] [place] [address] Phone [phone] Care Team Providers Care Fine Hairer Name Role Phone Charla Cardoza CNP Care Team Informati on International Logistics Analyst [phone] Problems Active Problems Provider Date Multinodular goiter [...] Male Sex Unknown Lives With Spouse Occupation senior manager asset protection Work Status Full-Time Employment Tobacco Use Start: Unknown End: Quit ETOH Use Occasionally consumes alcoho l Allergies and adverse reactions Description No Known Drug Allergies Medications Active Medications SIG Qnty Indications Ordering Provider Date Atorvastatin [id number] Tablets 1 qd Rodo Cardoza CNP [id number] Tablets 3 tabs bid prn Ki raymond Gonzalez M.D. Vital Signs Date Vital Result Comment 10/17/2024 8:19am BP Systolic 102 mmHg BP Diastolic 60 mmHg Heart Rate 79 /min Height 74 inches 6'2 Weight 217.12 lb BMI (Body Mass Index) 27.9 kg/m2 Results Test Acquired Date Facility Test Result H/L Range N ote TSH With Reflex To FT4 09/01/2022 [facility] TSH With Reflex To FT4 1.87 uIU/mL (0.4-4.2) Medical Devices Description No Information Available Encounters Type Date Location Provider Dx Diagnosis Office Visit 10/17/2024 8:15a Main Office Elissa Gonzalez M.D. E04.2 Nontoxic multinodular goiter Assessments Date Code Description Provider 10/17/2024 E04.2 Nontoxic multinodular goiter Elissa Gonzalez M.D. Plan of Treatment Future Appointment(s):* 04/29/2025 8:00 am - Elissa Gonzalez M.D. at Main Office 10/10/2023 - Elissa Gonzalez M.D.* E04.2 Nontoxic multinodular goiter Functional Status Description No Information Available Mental Status Description No Information Available Referrals Refer to Dr Reason for Referral Status Appt Severo Elissa Ramos M.D. Closed [address] [place] [address] [address] [place] [address] [phone]
== END 2025-02-03 12:15 | disposition home or self-care (01) ==
LOC: HO.HUSH 11:37
PROVIDERS: PCP Nurse Practitioner Family; Visit Provider Urology
DX: R97.20 Elevated prostate specific antigen [PSA] (principal); N40.1 Benign prostatic hyperplasia with lower urinary tract symptoms
CPT/HCPCS: 98005